=== PATIENT | male | born 1970 | race Caucasian/White ===

== ENCOUNTER 2020-12-07 21:17 | Emergency (ER) | payer OTHER ==
[2020-12-07 21:31] VITALS: PULSE 99; RESP 18; TEMP 97.9
[2020-12-07] MEDS ORDERED: SULFAMETH-TMP DS STARTER PACK 2 TAB BTL PO STA (22:08)
[2020-12-07] MEDS ORDERED: SULFAMETHOX-TMP 800-160MG 1 EACH TAB PO STA (22:08)
[2020-12-07] MEDS ORDERED: FUROSEMIDE 20 MG TAB PO STA (22:09)
--- NOTE | 2020-12-07 22:10 | ED ---
Recheck HPI - General Chief Complaint: Extremity Problem,Nontraumatic Stated Complaint: Extremity Swelling,Rt Leg Time Seen by Provider: 12/07/20 21:34 Source: patient, RN notes reviewed, old records reviewed Mode of arrival: ambulatory Limitations: no limitations - History of Present Illness Initial Comments: This is a 42-year-old male DF for evaluation patient having severe right leg swelling and edema. Patient states he recently had treatment for cellulase in that leg and symptoms of been persistent. Patient was on antibiotics and discharged home in antibiotics over the last 2 days of swelling is increased. Patient is otherwise no chest pain no shortness of breath no fevers MD Complaint: wound re-check -: days(s) Returns Today for: persistent/worsening pain related to initial visit, other (Worsening swelling) Symptoms Since Prior Visit: worsening pain, worsening swelling, worsening redness Context: planned re-check Associated Symptoms: none Treatments Prior to Arrival: Given Antibiotics on - Related Data Previous Rx's Medication Instructions Recorded Sulfamethox-Tmp 800-160Mg [Bactrim 2 tab PO BID #40 tab 12/07/20 DS 800-160 mg] Allergies Allergy/AdvReac Type Severity Reaction Status Date / Time No Known Allergies Allergy Verified 12/07/20 21:29 Review of Systems ROS Statement: Those systems with pertinent positive or pertinent negative responses have been documented in the HPI. ROS Other: All systems not noted in ROS Statement are negative. Past Medical History Past Medical History: Hypertension History of Any Multi-Drug Resistant Organisms: None Reported Additional Past Surgical History / Comment(s): Left elbow surgey Past Psychological History: No Psychological Hx Reported Smoking Status: Former smoker Past Alcohol Use History: Occasional Past Drug Use History: None Reported General Exam - General Exam Comments Initial Comments: Cellulitis of right lower extremity around knee with abscess, cellulitis down to leg Limitations: no limitations General appearance: alert, in no apparent distress Head exam: Present: atraumatic, normocephalic, normal inspection Eye exam: Present: normal appearance, PERRL, EOMI. Absent: scleral icterus, conjunctival injection, periorbital swelling ENT exam: Present: normal exam, mucous membranes moist Neck exam: Present: normal inspection. Absent: tenderness, meningismus, lymphadenopathy Respiratory exam: Present: normal lung sounds bilaterally. Absent: respiratory distress, wheezes, rales, rhonchi, stridor Cardiovascular Exam: Present: regular rate, normal rhythm, normal heart sounds. Absent: systolic murmur, diastolic murmur, rubs, gallop, clicks GI/Abdominal exam: Present: soft, normal bowel sounds. Absent: distended, tenderness, guarding, rebound, rigid Extremities exam: Present: normal inspection, full ROM, normal capillary refill. Absent: tenderness, pedal edema, joint swelling, calf tenderness Back exam: Present: normal inspection Neurological exam: Present: alert, oriented X3, CN II-XII intact Psychiatric exam: Present: normal affect, normal mood Skin exam: Present: warm, dry, intact, normal color. Absent: rash Course Vital Signs 12/07/20 12/07/20 21:27 22:25 Temperature 97.9 F 97.9 F Pulse Rate 99 99 Respiratory 18 18 Rate Blood Pressure 159/96 168/100 O2 Sat by Pulse 96 96 Oximetry - Reevaluation(s) Reevaluation #1: Medical record is reviewed Patient symptoms significantly improved here in the ER Patient informed of results and questions have been answered Procedures - Incision & Drainage Consent Obtained: verbal consent Site: lower extremity Anesthetic Used: lidocaine 1%, with epi I&D Cleaning Method: Chloroprep Sterile Field Used?: Yes Scalpel Used: #11 Needle Aspiration Performed?: No Irrigation Performed?: Yes I&D Drainage Obtained: Pus, Blood Culture Obtained?: No Patient Tolerated Procedure: well Medical Decision Making - Medical Decision Making 50 male DF for evaluation patient does have abscess to right leg. Abscess is resolved here in the ER, patient given antibiotics and can be discharged home Disposition Clinical Impression: Abscess of right leg, Cellulitis of right leg, Leg edema, right Disposition: HOME SELF-CARE Condition: Good Instructions (If sedation given, give patient instructions): Cellulitis (ED), Abscess Incision and Drainage (ED), Abscess (ED) Prescriptions: Sulfamethox-Tmp 800-160Mg [Bactrim DS 800-160 mg] 2 tab PO BID #40 tab Is patient prescribed a controlled substance at d/c from ED?: No Referrals: None,Stated [Primary Care Provider] - 1-2 days
[2020-12-07] MEDS ORDERED: LIDOCAINE 1%-EPI 1:100,000 20 ML VIAL SQ STA (22:16)
[2020-12-07 22:26] VITALS: BP 168/100
== END 2020-12-07 22:26 | disposition home or self-care (01) ==
LOC: EC 21:17
DX: L02.415 Cutaneous abscess of right lower limb (principal); I10 Essential (primary) hypertension; Z87.891 Personal history of nicotine dependence
CPT/HCPCS: 10060; 99283

== ENCOUNTER 2024-02-13 08:39 | Inpatient (IN) | payer OTHER ==
--- NOTE | 2024-02-13 08:58 | ED ---
General Adult HPI - General Chief complaint: Shortness of Breath Stated complaint: Both Leg Swelling Time Seen by Provider: 02/13/24 08:40 Source: patient, RN notes reviewed, old records reviewed Mode of arrival: ambulatory Limitations: no limitations - History of Present Illness Initial comments: This is a 53-year-old male who presents to the emergency department complaining of swollen feet. Patient states been ongoing for 3 to 4 days. Patient states this has happened to him in the past and in the past it was an infection. Patient states he has no redness no fevers but he was getting concerned because his legs are getting more more swollen. Patient states he is a daily drinker but he only drinks beer he states he drinks about 4-5 beers a night. Patient denies any chest pain or palpitations but he does complain of shortness of breath. Patient states he has no history of any heart disease or any breathing problems. Patient denies any fever chills or cough. - Related Data Home Medications Medication Instructions Recorded Confirmed No Known Home Medications 02/13/24 02/13/24 Allergies Allergy/AdvReac Type Severity Reaction Status Date / Time No Known Allergies Allergy Verified 02/13/24 11:53 Review of Systems ROS Statement: Those systems with pertinent positive or pertinent negative responses have been documented in the HPI. ROS Other: All systems not noted in ROS Statement are negative. Past Medical History Past Medical History: Hypertension History of Any Multi-Drug Resistant Organisms: None Reported Additional Past Surgical History / Comment(s): Left elbow surgey Past Psychological History: No Psychological Hx Reported Smoking Status: Former smoker Past Alcohol Use History: Occasional Past Drug Use History: None Reported General Exam - General Exam Comments Initial Comments: GENERAL: Patient is well-developed and well-nourished. Patient is nontoxic and well- hydrated and is in mild distress. ENT: Neck is soft and supple. No significant lymphadenopathy is noted. Oropharynx is clear. Moist mucous membranes. Neck has full range of motion without eliciting any pain. EYES: The sclera were anicteric and conjunctiva were pink and moist. Extraocular movements were intact and pupils were equal round and reactive to light. Eyelids were unremarkable. PULMONARY: Unlabored respirations. Good breath sounds bilaterally. No audible rales rhonchi or wheezing was noted. CARDIOVASCULAR: There is a regular rate and rhythm without any murmurs gallops or rubs. ABDOMEN: Soft and nontender with normal bowel sounds. No palpable organomegaly was noted. There is no palpable pulsatile mass. SKIN: Skin is clear with no lesions or rashes and otherwise unremarkable. NEUROLOGIC: Patient is alert and oriented x3. Cranial nerves II through XII are grossly intact. Motor and sensory are also intact. Normal speech, volume and content. Symmetrical smile. MUSCULOSKELETAL: Normal extremities with adequate strength and full range of motion. 2+ bilaterally LYMPHATICS: No significant lymphadenopathy is noted PSYCHIATRIC: Normal psychiatric evaluation. Limitations: no limitations Course Vital Signs 02/13/24 02/13/24 02/13/24 08:40 08:59 09:49 Temperature 97.3 F L Pulse Rate 107 H 107 H Respiratory 16 18 Rate Blood Pressure 151/109 166/127 156/114 O2 Sat by Pulse 97 98 Oximetry 02/13/24 02/13/24 10:00 11:09 Temperature Pulse Rate 108 H 101 H Respiratory 24 20 Rate Blood Pressure 156/114 140/98 O2 Sat by Pulse 91 L Oximetry Medical Decision Making - Medical Decision Making EKG is interpreted by myself. EKG shows sinus tachycardia at 106 bpm MD interval 259 QRS 95 QT interval 363 QTc is 425. Patient's EKG shows no ST segment elevation or depression. Was pt. sent in by a medical professional or institution (, PA, TAX ACCOUNTING ASSISTANT, urgent care, hospital, or longterm...) When possible be specific @ -No Did you speak to anyone other than the patient for history (EMS, parent, family, police, friend...)? What history was obtained from this source @ -No Did you review nursing and triage notes (agree or disagree)? Why? @ -I reviewed and agree with nursing and triage notes Were old charts reviewed (outside hosp., previous admission, EMS record, old EKG, old radiological studies, urgent care reports/EKG's, longterm records)? Report findings @ -No old charts were reviewed Differential Diagnosis? @ -Congestive heart failure, pulmonary edema, pedal edema, liver failure, cardiomyopathy this is not an all-inclusive list EKG interpreted by me (3pts min.). @ -As above X-rays interpreted by me (1pt min.). @ -Chest x-ray shows a small pleural effusion CT interpreted by me (1pt min.). @ -None done U/S interpreted by me (1pt. min.). @ -None done What testing was considered but not performed or refused? (CT, X-rays, U/S, labs)? Why? @ -None What meds were considered but not given or refused? Why? @ -None Did you discuss the management of the patient with other professionals (professionals i.e. , PA, TAX ACCOUNTING ASSISTANT, lab, RT, psych nurse, renal social worker, machinist apprentice, teacher, uniform patrol police officer, welfare case worker)? Give summary @ -I spoke with [facility] they agreed to admit the patient admit the patient and wrote admitting orders Was smoking cessation discussed for >3mins.? @ -No Was critical care preformed (if so, how long)? @ -No Were there social determinants of health that impacted care today? How? ( Homelessness, low income, unemployed, alcoholism, drug addiction, transportation, low edu. Level, literacy, decrease access to med. care, shelter, rehab)? @ -No Was there de-escalation of care discussed even if they declined (Discuss DNR or withdrawal of care, Hospice)? DNR status @ -No What co-morbidities impacted this encounter? (DM, HTN, Smoking, COPD, CAD, Cancer, CVA, ARF, Chemo, Hep., AIDS, mental health diagnosis, sleep apnea, morbid obesity)? @ -None Was patient admitted / discharged? Hospital course, mention meds given and route, prescriptions, significant lab abnormalities, going to OR and other pertinent info. @ -Patient has significant edema into the legs I gave the patient Lasix while in the emergency department and I did give him 10 hydralazine to bring his blood pressure down as well. Patient had an elevated BNP and when I spoke with [facility] they want the patient admitted and an echo ordered. I wrote admitting orders I did order an echo Undiagnosed new problem with uncertain prognosis? @ -No Drug Therapy requiring intensive monitoring for toxicity (Heparin, Nitro, Insulin, Cardizem)? @ -No Were any procedures done? @ -No Diagnosis/symptom? @ -Pedal edema Acute, or Chronic, or Acute on Chronic? @ -Acute Uncomplicated (without systemic symptoms) or Complicated (systemic symptoms)? @ -Complicated Side effects of treatment? @ -No Exacerbation, Progression, or Severe Exacerbation? @ -No Poses a threat to life or bodily function? How? (Chest pain, USA, IA, pneumonia, PE, COPD, DKA, ARF, appy, cholecystitis, CVA, Diverticulitis, Homicidal, Suicid al, threat to staff... and all critical care pts) @ -No Diagnosis/symptom? @ -Dyspnea Acute, or Chronic, or Acute on Chronic? @ -Acute Uncomplicated (without systemic symptoms) or Complicated (systemic symptoms)? @ -Complicated Side effects of treatment? @ -None Exacerbation, Progression, or Severe Exacerbation] @ -No Poses a threat to life or bodily function? @ -No - Lab Data Result diagrams: 02/13/24 09:14 02/13/24 09:14 Lab Results 02/13/24 02/13/24 02/13/24 Range/Units 09:14 09:14 09:14 WBC 10.8 H (3.8-10.6) k/uL RBC 5.03 (4.30-5.90) m/uL Hgb 14.8 (13.0-17.5) gm/dL Hct 47.2 (39.0-53.0) % MCV 93.8 (80.0-100.0) fL MCH 29.3 (25.0-35.0) pg MCHC 31.3 (31.0-37.0) g/dL RDW 14.1 (11.5-15.5) % Plt Count 315 (150-450) k/uL MPV 9.3 Neutrophils % 62 % Lymphocytes % 27 % Monocytes % 8 % Eosinophils % 2 % Basophils % 0 % Neutrophils # 6.7 (1.3-7.7) k/uL Lymphocytes # 2.9 (1.0-4.8) k/uL Monocytes # 0.8 (0-1.0) k/uL Eosinophils # 0.2 (0-0.7) k/uL Basophils # 0.1 (0-0.2) k/uL PT 12.1 (10.0-12.5) sec INR 1.1 (<1.2) APTT 20.0 L (22.0-30.0) sec Sodium 136 L (137-145) mmol/L Potassium 5.4 H (3.5-5.1) mmol/L Chloride 108 H (98-107) mmol/L Carbon Dioxide 20 L (22-30) mmol/L Anion Gap 8 mmol/L BUN 23 H (9-20) mg/dL Creatinine 1.02 (0.66-1.25) mg/dL Est GFR (CKD-EPI)AfAm >90 (>60 ml/min/1.73 sqM) Est GFR (CKD-EPI)NonAf 85 (>60 ml/min/1.73 sqM) Glucose 103 H (74-99) mg/dL Plasma Lactic Acid Avinash (0.7-2.0) mmol/L Calcium 9.1 (8.4-10.2) mg/dL Magnesium 1.9 (1.6-2.3) mg/dL Total Bilirubin 1.3 (0.2-1.3) mg/dL AST 57 (17-59) U/L ALT 39 (4-49) U/L Alkaline Phosphatase 60 (38-126) U/L Troponin I (0.000-0.034) ng/mL NT-Pro-B Natriuret Pep 7900 pg/mL Total Protein 6.4 (6.3-8.2) g/dL Albumin 3.7 (3.5-5.0) g/dL Serum Alcohol <10 mg/dL 02/13/24 02/13/24 Range/Units 09:14 09:54 WBC (3.8-10.6) k/uL RBC (4.30-5.90) m/uL Hgb (13.0-17.5) gm/dL Hct (39.0-53.0) % MCV (80.0-100.0) fL MCH (25.0-35.0) pg MCHC (31.0-37.0) g/dL RDW (11.5-15.5) % Plt Count (150-450) k/uL MPV Neutrophils % % Lymphocytes % % Monocytes % % Eosinophils % % Basophils % % Neutrophils # (1.3-7.7) k/uL Lymphocytes # (1.0-4.8) k/uL Monocytes # (0-1.0) k/uL Eosinophils # (0-0.7) k/uL Basophils # (0-0.2) k/uL PT (10.0-12.5) sec INR (<1.2) APTT (22.0-30.0) sec Sodium (137-145) mmol/L Potassium (3.5-5.1) mmol/L Chloride (98-107) mmol/L Carbon Dioxide (22-30) mmol/L Anion Gap mmol/L BUN (9-20) mg/dL Creatinine (0.66-1.25) mg/dL Est GFR (CKD-EPI)AfAm (>60 ml/min/1.73 sqM) Est GFR (CKD-EPI)NonAf (>60 ml/min/1.73 sqM) Glucose (74-99) mg/dL Plasma Lactic Acid Avinash 1.2 (0.7-2.0) mmol/L Calcium (8.4-10.2) mg/dL Magnesium (1.6-2.3) mg/dL Total Bilirubin (0.2-1.3) mg/dL AST (17-59) U/L ALT (4-49) U/L Alkaline Phosphatase (38-126) U/L Troponin I 0.025 (0.000-0.034) ng/mL NT-Pro-B Natriuret Pep pg/mL Total Protein (6.3-8.2) g/dL Albumin (3.5-5.0) g/dL Serum Alcohol mg/dL Disposition Clinical Impression: Elevated brain natriuretic peptide (BNP) level, Dyspnea, Pedal edema Disposition: ADMITTED IP TO THIS HOSP Referrals: None,Stated [Primary Care Provider] - 1-2 days Time of Disposition: 12:38
[2024-02-13 09:33] LABS: Basophils # (A) 0.1 k/uL (0-0.2); Basophils % (A) 0 %; Eosinophils # (A) 0.2 k/uL (0-0.7); Eosinophils % (A) 2 %; HCT 47.2 % (39.0-53.0); HGB 14.8 gm/dL (13.0-17.5); Lymphocytes # (A) 2.9 k/uL (1.0-4.8); Lymphocytes % (A) 27 %; MCH 29.3 pg (25.0-35.0); MCHC 31.3 g/dL (31.0-37.0); MCV 93.8 fL (80.0-100.0); Mean Platelet Volume 9.3; Monocytes # (A) 0.8 k/uL (0-1.0); Monocytes % (A) 8 %; Neutrophils # (A) 6.7 k/uL (1.3-7.7); Neutrophils % (A) 62 %; Platelet Count 315 k/uL (150-450); RBC 5.03 m/uL (4.30-5.90); RDW 14.1 % (11.5-15.5); WBC 10.8 k/uL (3.8-10.6)
[2024-02-13 09:43] LABS: INR 1.1 (<1.2); Prothrombin Time 12.1 sec (10.0-12.5)
[2024-02-13] MEDS: hydrALAZINE HCL 20 MG/ML 1 ML VIAL IVP STA (09:50)
[2024-02-13] MEDS: FUROSEMIDE 10 MG/ML 4 ML VIAL IV STA (09:51)
[2024-02-13 10:15] LABS: ALT 39 U/L (4-49); African American GFR (CKD) >90 (>60 ml/min/1.73 sqM); Alcohol <10 mg/dL; Anion Gap 8 mmol/L; Blood Urea Nitrogen 23 mg/dL (9-20); Calcium 9.1 mg/dL (8.4-10.2); Carbon Dioxide 20 mmol/L (22-30); Chloride 108 mmol/L (98-107); Glucose 103 mg/dL (74-99); Non-African American GFR(CKD) 85 (>60 ml/min/1.73 sqM); Sodium 136 mmol/L (137-145); Total Bilirubin 1.3 mg/dL (0.2-1.3)
[2024-02-13 10:22] LABS: NT-Pro-B-Type Natriuretic Pept 7900 pg/mL
[2024-02-13 10:30] LABS: AST 57 U/L (17-59); Albumin 3.7 g/dL (3.5-5.0); Alkaline Phosphatase 60 U/L (38-126); Magnesium 1.9 mg/dL (1.6-2.3); Potassium 5.4 mmol/L (3.5-5.1); Total Protein 6.4 g/dL (6.3-8.2)
--- NOTE | 2024-02-13 10:35 | XR ---
EXAMINATION TYPE: XR chest 2V DATE OF EXAM: 02/13/2024 COMPARISON: None INDICATION: Swelling short of breath TECHNIQUE: Frontal and lateral views of the chest are obtained. FINDINGS: The heart size is normal. The pulmonary vasculature is normal. The lungs are clear. IMPRESSION: 1. No acute pulmonary process.
[2024-02-13] MEDS ORDERED: NITROGLYCERIN SL TABS 0.4 MG TAB SUBLINGUAL PRN (12:38)
[2024-02-13] MEDS: FUROSEMIDE 10 MG/ML 2 ML VIAL IV SCH (15:59)
[2024-02-13] MEDS: HEPARIN SODIUM,PORCINE 5,000 UNIT/ML 1 ML VIAL SQ SCH (15:59)
[2024-02-13] MEDS: NITROGLYCERIN OINT 1 INCH/GM PACKET TOPICAL SCH (17:23)
--- NOTE | 2024-02-13 23:12 | P.HPIM ---
History of Present Illness H&P Date: 02/13/24 Chief Complaint: Bilateral leg swelling Patient is a is a 53-year-old male with a known history of hypertension and prior history of smoking presents to ER with complaints of worsening leg swelling bilaterally for the past 3 to 4 days. Patient states that it happened with him in the past due to infection but denies any redness or fever at this time. Patient does drink on daily basis about 4 to 5 days at night.. Patient does complain of shortness of breath but denies any complaints of chest pain. No nausea vomiting or abdominal pain or diarrhea. No fever no chills. No cough or sputum production. Blood pressure 166/127, pulse 107 respiration 16 and pulse ox 97% on room air. Chest x-ray showed no acute pulmonary process. EKG showed sinus tachycardia with left atrial enlargement. Laboratory showed WBC 10.8 hemoglobin 14.8 and platelets 315 sodium 136 potassium 5.4 chloride 108 bicarb is 20 BUN 23 and creatinine 1.02 and blood sugar 103 troponin x 3 negative magnesium 1.9 proBNP 7900 Serum alcohol level is less than 10. Albumin 3.7. Review of Systems Constitutional: Patient denies any fever or chills . No generalized weakness or weight loss. Abdomen: Patient denied nausea vomiting and diarrhea and abdominal pain. Cardiovascular: Patient denies any chest pain. Patient does complain of short of breath. No palpitations. Worsening leg swelling. Respiratory: patient denied any cough or sputum production. Positive shortness of breath Neurologic: Patient denied any numbness or tingling. no headache. Musculoskeletal: Patient denies any complaints of joint swelling or deformity. Skin: Negative Psychiatric: Negative Endocrine: No heat or cold intolerance. No recent weight gain. Genitourinary: No dysuria or hematuria. All other 14 point ROS negative except the above Past Medical History Past Medical History: Hypertension History of Any Multi-Drug Resistant Organisms: None Reported Additional Past Surgical History / Comment(s): Left elbow surgey Past Psychological History: No Psychological Hx Reported Smoking Status: Former smoker Past Alcohol Use History: Occasional Past Drug Use History: None Reported Medications and Allergies Home Medications Medication Instructions Recorded Confirmed Type No Known Home Medications 02/13/24 02/13/24 History Allergies Allergy/AdvReac Type Severity Reaction Status Date / Time No Known Allergies Allergy Verified 02/13/24 11:53 Physical Exam Vitals: Vital Signs Temp Pulse Resp BP Pulse Ox 02/13/24 12:00 103 H 13 140/98 98 02/13/24 11:09 101 H 20 140/98 91 L 02/13/24 10:00 108 H 24 156/114 02/13/24 09:49 107 H 18 156/114 98 02/13/24 08:59 166/127 02/13/24 08:40 97.3 F L 107 H 16 151/109 97 Intake and Output 02/12/24 02/13/24 02/13/24 22:59 06:59 14:59 Output Total 1999 Balance -1999 Output: Urine 1999 Other: Weight 104.326 kg PHYSICAL EXAMINATION: Patient is lying in the bed comfortably, no acute distress, awake alert and oriented.. HEENT: Normocephalic. Neck is supple. Pupils reactive. Nostrils clear. Oral cavity is moist. Neck reveals no JVD, carotid bruits, or thyromegaly. CHEST EXAMINATION: Trachea is central. Symmetrical expansion. Bibasilar diminished sounds otherwise lung gauthier clear to auscultation and percussion. CARDIAC: Normal S1, S2 with no gallops. No murmurs ABDOMEN: Soft. Bowel sounds normal. No organomegaly. No abdominal bruits. Extremities: Bilateral lower extremity 3+ edema. No clubbing or cyanosis Neurologically awake, alert, oriented x3 with well-coordinated movements. No focal deficits noted Skin: No rash or skin lesions. Psychiatric: Coperative. Nonsuicidal Musculoskeletal: No joint swelling or deformity. Normal range of motion. Results CBC & Chem 7: 02/14/24 03:26 02/14/24 03:26 Labs: Abnormal Lab Results - Last 24 Hours (Table) 02/13/24 02/13/24 02/13/24 Range/Units 09:14 09:14 09:14 WBC 10.8 H (3.8-10.6) k/uL APTT 20.0 L (22.0-30.0) sec Sodium 136 L (137-145) mmol/L Potassium 5.4 H (3.5-5.1) mmol/L Chloride 108 H (98-107) mmol/L Carbon Dioxide 20 L (22-30) mmol/L BUN 23 H (9-20) mg/dL Glucose 103 H (74-99) mg/dL Thrombosis Risk Factor Assmnt - DVT/VTE Prophylaxis DVT/VTE Prophylaxis: Pharmacologic Prophylaxis ordered Assessment and Plan Assessment: Acute CHF. Ejection fraction not known. Uncontrolled hypertension Noncompliant with medications Daily alcohol use Prior history of smoking DVT prophylaxis with heparin subcu Plan: Patient will be continued on telemonitoring. Started on IV Lasix 20 mg every 8 hourly and continue to monitor renal function. 2D echocardiogram was ordered. Cardiology consult. Continue to monitor blood pressure and titrate medications as needed. Follow-up closely. Patient discharged on thiamine and multivitamins. Alcohol abstinence has been counseled. Discussed with the patient and his . Time with Patient: Greater than 30
[2024-02-14] MEDS: ASPIRIN 325 MG TAB PO SCH (07:59)
[2024-02-14 08:49] LABS: Basophils # (A) 0.04 X 10*3/uL (0.00-0.10); Basophils % (A) 0.4 %; Eosinophils # (A) 0.32 X 10*3/uL (0.04-0.35); Eosinophils % (A) 3.3 %; HCT 43.9 % (39.6-50.0); HGB 14.3 g/dL (13.0-17.0); Lymphocytes # (A) 2.33 X 10*3/uL (0.90-5.00); Lymphocytes % (A) 24.3 %; MCH 29.5 pg (27.0-32.0); MCHC 32.6 g/dL (32.0-37.0); MCV 90.7 FL (80.0-97.0); Mean Platelet Volume 11.1 FL (9.5-12.2); Monocytes % (A) 10.4 %; NRBC Per 100 WBC 0 X 10*3/uL (0.00-0.01); Neutrophils # (A) 5.86 X 10*3/uL (1.80-7.70); Neutrophils % (A) 61.3 %; Platelet Count 313 X 10*3/uL (140-440); RBC 4.84 X 10*6/uL (4.40-5.60); WBC 9.58 X 10*3/uL (4.50-10.00)
[2024-02-14 08:59] LABS: BUN/Creat Ratio 15.38 Ratio (12.00-20.00); Calcium 9.1 mg/dL (8.7-10.3); Carbon Dioxide 27.9 mmol/L (21.6-31.8); Chloride 103 mmol/L (96-109); Chol/HDL Ratio 4.12 Ratio; Glucose 103 mg/dL (70-110); LDL Cholesterol,Calculated 83.5 mg/dL (0.0-131.0); Potassium 4.5 mmol/L (3.5-5.5); Sodium 141 mmol/L (135-145); VLDL Calculation 18.74 mg/dL (5.00-40.00)
--- NOTE | 2024-02-14 11:29 | P.CRDCN ---
History of Present Illness History of present illness: HISTORY OF PRESENTING ILLNESS This is a pleasant 53-year-old with past medical history significant for hypertension, medical noncompliance, previous tobacco as well as alcohol use who presents with significant LE edema and shortness of breath. He does not see a metal handler. He previously had been on a number of high blood pressure medications and was seen at [facility]'s clinic however does not follow and has not been taking his medications. He does not check his blood pressure home. He states he has noticed increase in lower extremity edema and some shortness breath and therefore came to the hospital. He denies any actual chest pain or pressure. EKG shows mild sinus tachycardia with nonspecific T-wave inversions. Does not smoke, previously drank however does not drink and does have family history of father and mother having heart disease as well as aortic aneurysm. BNP noted to be elevated, chest x-ray consistent with heart failure. Blood pressures about in the 160s and 170s over 110s. REVIEW OF SYSTEMS At the time of my exam: CONSTITUTIONAL: Denies fever or chills. CARDIOVASCULAR: Denies chest pain, +shortness of breath, +orthopnea, no PND or palpitations. RESPIRATORY: Denies cough. GASTROINTESTINAL: Denies abdominal pain, diarrhea, constipation, nausea or vom iting. MUSCULOSKELETAL: Denies myalgias. NEUROLOGIC: Denies numbness, tingling or weakness. ENDOCRINE: Denies fatigue, weight change, polydipsia or polyurina. GENITOURINARY: Denies burning, hematuria or urgency with micturation. HEMATOLOGIC: Denies history of anemia or bleeding. PHYSICAL EXAMINATION Vital signs reviewed. CONSTITUTIONAL: No apparent distress. HEENT: Head is normocephalic. Pupils are equal, round. Sclerae anicteric. Mucous membranes of the mouth are moist. No JVD. No carotid bruit. CHEST EXAMINATION: Lungs are clear to auscultation. No chest wall tenderness is noted on palpation or with deep breathing. HEART EXAMINATION: Regular rate and rhythm. S1, S2 heard. No murmurs, gallops or rub. ABDOMEN: Soft, nontender. Positive bowel sounds. EXTREMITIES: 2+ peripheral pulses, 2+ lower extremity edema and no calf tenderness. NEUROLOGIC EXAMINATION: Patient is awake, alert and oriented x3. ASSESSMENT Acute on chronic presumed diastolic heart failure Hypertension noncompliant with medications Medical noncompliance Previous tobacco abuse Previous alcohol use Family history of CAD Family history of aneurysm PLAN Blood pressure is uncontrolled. We will start carvedilol as well as lisinopril and monitor response. Symptoms all consistent with heart failure and continue with diuretics. Check 2-D echo. Low-salt diet and monitor ins and outs. Monitor creatinine closely. Further recommendations to follow. Past Medical History Past Medical History: Hypertension History of Any Multi-Drug Resistant Organisms: None Reported Additional Past Surgical History / Comment(s): Left elbow surgey Past Anesthesia/Blood Transfusion Reactions: No Reported Reaction Past Psychological History: No Psychological Hx Reported Smoking Status: Former smoker Past Alcohol Use History: Occasional Past Drug Use History: None Reported Medications and Allergies Home Medications Medication Instructions Recorded Confirmed Type No Known Home Medications 02/13/24 02/13/24 History Allergies Allergy/AdvReac Type Severity Reaction Status Date / Time No Known Allergies Allergy Verified 02/13/24 11:53 Physical Exam Vitals: Vital Signs Temp Pulse Pulse Resp BP BP Pulse Ox 02/14/24 09:21 162/107 02/14/24 07:00 97.8 F 107 H 15 171/111 95 02/14/24 04:21 154/97 02/14/24 02:00 108 H 17 164/118 95 02/13/24 22:40 97.5 F L 105 H 17 151/108 96 02/13/24 21:22 109 H 18 157/111 94 L 02/13/24 18:45 97.6 F 104 H 18 156/98 97 02/13/24 17:20 102 H 18 167/122 96 02/13/24 16:06 106 H 18 167/122 96 02/13/24 12:00 103 H 13 140/98 98 Intake and Output 02/13/24 02/14/24 02/14/24 22:59 06:59 14:59 Output Total 1500 800 Balance -1500 -800 Output: Urine 1500 800 Other: Voiding Method Urinal Urinal Weight 104.326 kg 105.1 kg Results 02/14/24 03:26 02/14/24 03:26 Cardiac Enzymes 02/13/24 02/13/24 Range/Units 13:02 16:17 Troponin I 0.018 0.018 (0.000-0.034) ng/mL Lipids 02/14/24 Range/Units 03:26 Triglycerides 93.70 (0.00-149.00) mg/dL Cholesterol 135.00 (0.00-200.00) mg/dL HDL Cholesterol 32.80 L (40.00-60.00) mg/dL Cholesterol/HDL Ratio 4.12 Ratio CBC 02/14/24 Range/Units 03:26 WBC 9.58 (4.50-10.00) X 10*3/uL RBC 4.84 (4.40-5.60) X 10*6/uL Hgb 14.3 (13.0-17.0) g/dL Hct 43.9 (39.6-50.0) % Plt Count 313 (140-440) X 10*3/uL Comprehensive Metabolic Panel 02/14/24 Range/Units 03:26 Sodium 141 (135-145) mmol/L Potassium 4.5 (3.5-5.5) mmol/L Chloride 103 (96-109) mmol/L Carbon Dioxide 27.9 (21.6-31.8) mmol/L BUN 20.0 (9.0-27.0) mg/dL Creatinine 1.3 (0.6-1.5) mg/dL Glucose 103 (70-110) mg/dL Calcium 9.1 (8.7-10.3) mg/dL Current Medications Generic Name Dose Route Start Last Admin Trade Name Freq PRN Reason Stop Dose Admin Aspirin 325 mg 02/14/24 09:00 02/14/24 07:59 Aspirin 325 Mg Tab PO 325 mg DAILY AMBER Administration Furosemide 20 mg 02/13/24 16:00 02/14/24 07:59 Furosemide 10 Mg/Ml 2 Ml Vial IV 20 mg Q8HR AMBER Administration Heparin Sodium (Porcine) 5,000 unit 02/13/24 16:00 02/14/24 07:59 Heparin Sodium,Porcine 5,000 Unit/Ml 1 Ml Vial SQ 5,000 unit Q8HR AMBER Administration Lisinopril 10 mg 02/14/24 11:30 Lisinopril 10 Mg Tab PO DAILY AMBER Nitroglycerin 0.4 mg 02/13/24 12:38 Nitroglycerin Sl Tabs 0.4 Mg Tab SUBLINGUAL Q5M PRN Chest Pain Nitroglycerin 1 inch 02/13/24 18:00 02/14/24 05:43 Nitroglycerin Oint 1 Inch/Gm Packet TOPICAL Not Given Q6HR AMBER Intake and Output 02/13/24 02/14/24 02/14/24 22:59 06:59 14:59 Output Total 1500 800 Balance -1500 -800 Output: Urine 1500 800 Other: Voiding Method Urinal Urinal Weight 104.326 kg 105.1 kg 02/14/24 03:26 02/14/24 03:26
[2024-02-14] MEDS: carvediloL 6.25 MG TAB PO SCH (12:58)
[2024-02-14] MEDS: lisinopriL 10 MG TAB PO SCH (12:58)
--- NOTE | 2024-02-14 13:02 | CA ---
Transthoracic Echo Report Name: Gerardo Sepulveda Age: 53 Gender: M : 1970 Exam Date: 02/13/2024 14:48 Exam Location: [facility] Ht (in): 71 Wt (lb): 230 Ordering Physician: Lukasz Hess MD Attending/Referring Phys: Laborer [employer] Jojo Lujan RDCS Procedure CPT: Indications: dyspnea, elevated BNP Cardiac Hx: Technical Quality: Fair Contrast 1: Definity Total Dose (mL): 2 Contrast 2: Total Dose (mL): MEASUREMENTS (Male / Female) Normal Values 2D ECHO LV Diastolic Diameter PLAX 5.3 cm 4.2 - 5.9 / 3.9 - 5.3 cm LV Systolic Diameter PLAX 4.4 cm IVS Diastolic Thickness 1.5 cm 0.6 - 1.0 / 0.6 - 0.9 cm LVPW Diastolic Thickness 1.7 cm 0.6 - 1.0 / 0.6 - 0.9 cm LV Relative Wall Thickness 0.6 RV Internal Dim ED PLAX 3.7 cm LA Volume 93.1 cm??? 18 - 58 / 22 - 52 cm??? LA Volume Index 40.2 cm???/m??? 16 - 28 cm???/m??? M-MODE Aortic Root Diameter MM 3.7 cm LA Systolic Diameter MM 4.3 cm LA Ao Ratio MM 1.1 AV Cusp Separation MM 1.7 cm DOPPLER AV Peak Velocity 116.5 cm/s AV Peak Gradient 5.4 mmHg AV Mean Velocity 86.2 cm/s AV Mean Gradient 3.2 mmHg AV Velocity Time Integral 20.3 cm LVOT Peak Velocity 93.4 cm/s LVOT Peak Gradient 3.5 mmHg LVOT Velocity Time Integral 14.2 cm MV Area PHT 3.4 cm??? Mitral E Point Velocity 146.2 cm/s Mitral A Point Velocity 1.1 cm/s Mitral E to A Ratio 134.9 MV Deceleration Time 226.2 ms TR Peak Velocity 326.3 cm/s TR Peak Gradient 42.6 mmHg Right Ventricular Systolic Press 46.2 mmHg FINDINGS Left Ventricle Moderately increased left ventricular wall thickness. Left ventricular cavity size normal. Severely reduced global left ventricular systolic function. Left ventricular ejection fraction is estimated at 20-25 %. Right Ventricle Mild right ventricular dilatation. Mildly decreased RV systolic function. Mild pulmonary hypertension. Right Atrium Mild right atrial dilatation. Left Atrium Severely increased left atrial volume. Mildly increased left atrial area. Mitral Valve Structurally normal mitral valve. No mitral stenosis. Mild mitral annular calcification. Moderate mitral regurgitation. Aortic Valve Trileaflet aortic valve. No aortic valve stenosis or regurgitation. Tricuspid Valve Structurally normal tricuspid valve. [id number] tricuspid regurgitation. Pulmonic Valve Structurally normal pulmonic valve. Trace pulmonic regurgitation. Pericardium No pericardial effusion. Aorta Normal size aortic root and proximal ascending aorta. CONCLUSIONS Left ventricular ejection fraction 20-25% Moderately increased left ventricular wall thickness Moderately dilated left atrium Moderate mitral regurgitation Mild to moderate tricuspid regurgitation No pericardial effusion Previewed by: Dr. Colin Santos DO (Electronically Signed) Final Date: 14 February 2024 13:01
[2024-02-15 09:24] LABS: Basophils # (A) 0.04 X 10*3/uL (0.00-0.10); Basophils % (A) 0.5 %; Eosinophils # (A) 0.28 X 10*3/uL (0.04-0.35); Eosinophils % (A) 3.6 %; HCT 44.1 % (39.6-50.0); Lymphocytes # (A) 2.84 X 10*3/uL (0.90-5.00); Lymphocytes % (A) 36.6 %; MCHC 31.7 g/dL (32.0-37.0); MCV 91.5 FL (80.0-97.0); Monocytes # (A) 0.73 X 10*3/uL (0.20-1.00); Monocytes % (A) 9.4 %; NRBC Per 100 WBC 0 X 10*3/uL (0.00-0.01); Neutrophils # (A) 3.86 X 10*3/uL (1.80-7.70); Neutrophils % (A) 49.6 %; Platelet Count 320 X 10*3/uL (140-440); RBC 4.82 X 10*6/uL (4.40-5.60); RDW 13.9 % (11.5-14.5); WBC 7.77 X 10*3/uL (4.50-10.00)
--- NOTE | 2024-02-15 09:32 | P.PN ---
Subjective Progress Note Date: 02/15/24 HISTORY OF PRESENTING ILLNESS This is a pleasant 53-year-old with past medical history significant for hyp ertension, medical noncompliance, previous tobacco as well as alcohol use who presents with significant LE edema and shortness of breath. 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 He previously had been on a number of high blood pressure medications and was seen at [facility]'s clinic however does not follow and has not been taking his medications. He does not check his blood pressure home. He states he has noticed increase in lower extremity edema and some shortness breath and therefore came to the hospital. He denies any actual chest pain or pressure. EKG shows mild sinus tachycardia with nonspecific T-wave inversions. Does not smoke, previously drank however does not drink and does have family h istory of father and mother having heart disease as well as aortic aneurysm. BNP noted to be elevated, chest x-ray consistent with heart failure. Blood pressures about in the 160s and 170s over 110s. 02/14 Patient is seen and examined. Patient has been maintained on Coreg 6.25 mg twice daily, lisinopril 10 mg daily. Blood pressure is 140/92, heart rate 92, pulse ox 94% on room air. WBC 9.5, hemoglobin 14.3. Electrolytes and renal function are normal with a creatinine of 1.3. Triglycerides 93, cholesterol 135, LDL 83. Echocardiogram reveals EF of 20 to 25%, moderately increased left ventricular wall thickness, moderately dilated left atrium. Moderate MR, mild to moderate TR. No pericardial effusion. Patient has been maintained on IV Lasix 20 mg every 8 hours. He has a negative fluid balance and weight loss of almost 4 kg. Discussed results of the echocardiogram with the patient and the need to move forward with cardiac catheterization which he is in agreement to do. Will plan to make patient n.p.o. tonight for possible heart catheterization tomorrow. PHYSICAL EXAMINATION Vital signs reviewed. CONSTITUTIONAL: No apparent distress. HEENT: Head is normocephalic. Pupils are equal, round. Sclerae anicteric. Mucous membranes of the mouth are moist. No JVD. No carotid bruit. CHEST EXAMINATION: Lungs are clear to auscultation. No chest wall tenderness is noted on palpation or with deep breathing. HEART EXAMINATION: Regular rate and rhythm. S1, S2 heard. No murmurs, gallops or rub. ABDOMEN: Soft, nontender. Positive bowel sounds. EXTREMITIES: 2+ peripheral pulses, 2+ lower extremity edema and no calf tenderness. NEUROLOGIC EXAMINATION: Patient is awake, alert and oriented x3. 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 tonight for possible cardiac catheterization tomorrow with Dr. Santos. Further recommendations to follow. Nurse practitioner note has been reviewed, I agree with documented findings and plan of care. Patient was seen and examined. Objective - Vital Signs Vital signs: Vital Signs Temp 97.9 F 02/15/24 07:00 Pulse 92 02/15/24 07:00 Resp 18 02/15/24 07:00 BP 140/92 02/15/24 07:00 Pulse Ox 94 L 02/15/24 07:00 FiO2 Intake & Output 02/14/24 02/15/24 02/15/24 18:59 06:59 18:59 Intake Total 236 180 Output Total 2775 1775 Balance -6121 -7164 180 Weight 101.2 kg Intake: Oral 236 180 Output: Urine 2779 1775 Other: Voiding Method Urinal Urinal - Labs CBC & Chem 7: 02/15/24 03:54 02/14/24 03:26
[2024-02-15] MEDS: THIAMINE 100 MG TAB PO SCH (10:11)
[2024-02-15] MEDS: MULTIVITAMINS, THERA 1 EACH TAB PO SCH (10:11)
[2024-02-15 12:39] LABS: BUN/Creat Ratio 18.27 Ratio (12.00-20.00); Blood Urea Nitrogen 20.1 mg/dL (9.0-27.0); Carbon Dioxide 29.1 mmol/L (21.6-31.8); Chloride 99 mmol/L (96-109); Glucose 115 mg/dL (70-110); Potassium 4.5 mmol/L (3.5-5.5); Sodium 138 mmol/L (135-145)
[2024-02-16] MEDS: carvediloL 6.25 MG TAB PO STA (08:54)
[2024-02-16] MEDS ORDERED: NITROGLYCERIN SL TABS 0.4 MG TAB SUBLINGUAL PRN (09:29)
[2024-02-16] MEDS ORDERED: ALPRAZolam 0.5 MG TAB PO PRN (09:29)
[2024-02-16] MEDS ORDERED: ALPRAZolam 0.25 MG TAB PO PRN (09:29)
--- NOTE | 2024-02-16 09:33 | P.PN ---
Subjective Progress Note Date: 02/16/24 HISTORY OF PRESENTING ILLNESS This is a pleasant 53-year-old with past medical history significant for hyp ertension, medical noncompliance, previous tobacco as well as alcohol use who presents with significant LE edema and shortness of breath. 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 He previously had been on a number of high blood pressure medications and was seen at [facility]'s clinic however does not follow and has not been taking his medications. He does not check his blood pressure home. He states he has noticed increase in lower extremity edema and some shortness breath and therefore came to the hospital. He denies any actual chest pain or pressure. EKG shows mild sinus tachycardia with nonspecific T-wave inversions. Does not smoke, previously drank however does not drink and does have family h istory of father and mother having heart disease as well as aortic aneurysm. BNP noted to be elevated, chest x-ray consistent with heart failure. Blood pressures about in the 160s and 170s over 110s. 02/14 Patient is seen and examined. Patient has been maintained on Coreg 6.25 mg twice daily, lisinopril 10 mg daily. Blood pressure is 140/92, heart rate 92, pulse ox 94% on room air. WBC 9.5, hemoglobin 14.3. Electrolytes and renal function are normal with a creatinine of 1.3. Triglycerides 93, cholesterol 135, LDL 83. Echocardiogram reveals EF of 20 to 25%, moderately increased left ventricular wall thickness, moderately dilated left atrium. Moderate MR, mild to moderate TR. No pericardial effusion. Patient has been maintained on IV Lasix 20 mg every 8 hours. He has a negative fluid balance and weight loss of almost 4 kg. Discussed results of the echocardiogram with the patient and the need to move forward with cardiac catheterization which he is in agreement to do. Will plan to make patient n.p.o. tonight for possible heart catheterization tomorrow. 02/15 Patient's blood pressure 145/107, heart rate 100, pulse ox 95% on room air. He is maintained on IV Lasix 40 mg every 8 hours. Patient is agreeable to move forward with left heart catheterization today with Dr. Santos. PHYSICAL EXAMINATION Vital signs reviewed. CONSTITUTIONAL: No apparent distress. HEENT: Head is normocephalic. Pupils are equal, round. Sclerae anicteric. Mucous membranes of the mouth are moist. No JVD. No carotid bruit. CHEST EXAMINATION: Lungs are clear to auscultation. No chest wall tenderness is noted on palpation or with deep breathing. HEART EXAMINATION: Regular rate and rhythm. S1, S2 heard. No murmurs, gallops or rub. ABDOMEN: Soft, nontender. Positive bowel sounds. EXTREMITIES: 2+ peripheral pulses, 2+ lower extremity edema and no calf tenderness. NEUROLOGIC EXAMINATION: Patient is awake, alert and oriented x3. 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 Patient is scheduled for cardiac catheterization today with Dr. Santos. Further recommendations to follow. Nurse practitioner note has been reviewed, I agree with documented findings and plan of care. Patient was seen and examined. Objective - Vital Signs Vital signs: Vital Signs Temp 98.1 F 02/16/24 07:00 Pulse 100 02/16/24 07:00 Resp 17 02/16/24 07:00 BP 145/107 02/16/24 07:00 Pulse Ox 95 02/16/24 07:00 FiO2 Intake & Output 02/15/24 02/16/24 02/16/24 18:59 06:59 18:59 Intake Total 540 Output Total 300 2450 Balance 240 -2450 Weight 98.8 kg Intake: Oral 540 Output: Urine 300 2450 Other: Voiding Method Urinal Urinal - Labs CBC & Chem 7: 02/15/24 03:54 02/15/24 03:54 Labs: Abnormal Lab Results - Last 24 Hours (Table) 02/15/24 02/15/24 Range/Units 03:54 03:54 MCHC 31.7 L (32.0-37.0) g/dL Glucose 115 H (70-110) mg/dL
[2024-02-16] MEDS: ASPIRIN 325 MG TAB PO STA (09:42)
[2024-02-16] MEDS: ATORVASTATIN 80 MG TAB PO STA (09:43)
[2024-02-16 09:47] LABS: BUN/Creat Ratio 21.83 Ratio (12.00-20.00); Blood Urea Nitrogen 26.2 mg/dL (9.0-27.0); Calcium 9.1 mg/dL (8.7-10.3); Carbon Dioxide 27.8 mmol/L (21.6-31.8); Chloride 101 mmol/L (96-109); Glucose 117 mg/dL (70-110); Potassium 4.4 mmol/L (3.5-5.5); Sodium 139 mmol/L (135-145)
[2024-02-16 09:55] LABS: Glucose,Whole Blood 100 mg/dL (70-110)
[2024-02-16] MEDS ORDERED: VERAPAMIL 2.5 MG/ML 2 ML AMP ONE (12:56)
[2024-02-16] MEDS ORDERED: LIDOCAINE 1% INJ 10MG/ML (20 ML MDV) ONE (12:56)
[2024-02-16] MEDS ORDERED: fentaNYL (PF) 50 MCG/ML 2 ML AMP ONE (12:59)
[2024-02-16] MEDS ORDERED: HEPARIN SODIUM 1,000 UN/ML (10ML VL) ONE (12:59)
[2024-02-16] MEDS: SODIUM CHLORIDE 0.9% 1,000 ML IV ONE (13:05)
[2024-02-16] MEDS: fentaNYL (PF) 50 MCG/ML 2 ML AMP IVP ONE (13:11)
[2024-02-16] MEDS: MIDAZOLAM 2 MG/2 ML VIAL IVP ONE (13:11)
[2024-02-16] MEDS: LIDOCAINE 1% INJ 10MG/ML (20 ML MDV) SQ ONE (13:18)
[2024-02-16] MEDS: VERAPAMIL SYRINGE (5 MG/10 ML) INTRAARTER ONE (13:19)
[2024-02-16] MEDS: HEPARIN SODIUM 1,000 UN/ML (10ML VL) IVP ONE (13:22)
[2024-02-16] MEDS: IOPAMIDOL-370 100ML BTL INJ ONE (13:26)
--- NOTE | 2024-02-16 13:38 | P.CARDCATH ---
Description of Procedure: PROCEDURES PERFORMED: Left heart catheterization, bilateral coronary angiography, ultrasound guided arterial access INDICATION: CMP CONSENT:I have discussed the risks, benefits and alternative therapies for the above-mentioned procedure and for both sedation/analgesia as well as necessary blood product administration, if indicated, as they pertain to this patient. The patient has indicated understanding and acceptance of the risks and procedures discussed. PROCEDURE: After the risks, benefits and alternatives of the above mentioned procedure explained in detail with the patient, informed consent was obtained. Patient was taken to the catheterization lab and prepped and draped in usual fashion. Ultrasound guidance was used to assess for arterial access. 1% lidocaine was used to anesthetize the right radial artery. A 6-Barbadian sheath was placed in the right radial artery using modified Seldinger technique and ultrasound guidance. Left coronary angiography was performed with a 5-Barbadian JL 3.5 catheter and right coronary angiography was performed with a 5-Barbadian FR5 catheter in various views. A 5-Barbadian FR5 catheter was inserted into the left ventricle and pressure measurements were obtained. The right radial sheath was removed and a TR band was placed with hemostasis achieved. The patient tolerated the procedure well. Patient was transported back to the post catheterization holding area in stable condition. Conscious Sedation: Patient was monitored under the direct supervision of myself for conscious sedation using Versed and fentanyl for a total duration of 8 minutes HEMODYNAMICS: 141/95 LV: 193/14, LVEDP 29 SELECTIVE CORONARY ARTERIOGRAPHY: LEFT MAIN: The left main is a large caliber vessel which bifurcates into the LAD and circumflex. There is no significant stenosis. LEFT ANTERIOR DESCENDING CORONARY ARTERY: LAD is a large caliber vessel which wraps around to the apex. There is mild 20% mid LAD stenosis and otherwise mild luminal irregularities LEFT CIRCUMFLEX CORONARY ARTERY: Left circumflex is a moderate caliber vessel with mild luminal irregularities. RIGHT CORONARY ARTERY: The right coronary artery is a large caliber vessel which gives off a PDA and PLV branch and is the dominant vessel. There is a mid RCA 20% stenosis and otherwise mild luminal irregularities FINAL IMPRESSION: 1. Mild CAD as described above including 20% mid LAD in 20% mid RCA stenosis. 2. Elevated left sided filling pressures PLAN: 1. Aggressive risk factor modification per most recent ACC/AHA guidelines. 2. Follow-up in the office in 1-2 weeks.
[2024-02-16] MEDS: DAPAGLIFLOZIN PROPANEDIOL 10 MG TABLET PO SCH (15:12)
[2024-02-16] MEDS: SPIRONOLACTONE 25 MG TAB PO SCH (15:12)
[2024-02-16] MEDS: carvediloL 6.25 MG TAB PO SCH (17:21)
--- NOTE | 2024-02-17 00:01 | P.PN ---
Subjective Progress Note Date: 02/14/24 Patient is a is a 53-year-old male with a known history of hypertension and prior history of smoking presents to ER with complaints of worsening leg swelling bilaterally for the past 3 to 4 days. Patient states that it happened with him in the past due to infection but denies any redness or fever at this time. Patient does drink on daily basis about 4 to 5 days at night.. Patient does complain of shortness of breath but denies any complaints of chest pain. No nausea vomiting or abdominal pain or diarrhea. No fever no chills. No cough or sputum production. Blood pressure 166/127, pulse 107 respiration 16 and pulse ox 97% on room air. Chest x-ray showed no acute pulmonary process. EKG showed sinus tachycardia with left atrial enlargement. Laboratory showed WBC 10.8 hemoglobin 14.8 and platelets 315 sodium 136 potassium 5.4 chloride 108 bicarb is 20 BUN 23 and creatinine 1.02 and blood sug ar 103 troponin x 3 negative magnesium 1.9 proBNP 7900 Serum alcohol level is less than 10. Albumin 3.7. 02/14/2024 Patient is currently lying in the bed. Awake alert and oriented. Still having leg swelling and is being continued on Lasix 20 mg IV every 8. Otherwise patient blood pressure is also elevated. Added lisinopril and Coreg. No complaints of dizziness or lightheadedness. No fever no chills. No cough or sputum production. Lab data showed WBC 9.4 hemoglobin 14.3 and platelets 313 BUN 20 and creatinine 1.3 and LDL 83.5. Cardiology is on board. Current medications reviewed. Objective - Vital Signs Vital signs: Vital Signs Temp 98.2 F 02/14/24 19:11 Pulse 103 H 02/14/24 19:11 Resp 20 02/14/24 19:11 BP 151/97 02/14/24 19:11 Pulse Ox 97 02/14/24 19:11 FiO2 Intake & Output 02/14/24 02/14/24 02/15/24 06:59 18:59 06:59 Intake Total 236 Output Total 3339 8627 187 Balance -4047 -0180 -508 Weight 105.1 kg Intake: Oral 236 Output: Urine 1500 4565 477 Other: Voiding Method Urinal Urinal - Exam PHYSICAL EXAMINATION: Patient is lying in the bed comfortably, no acute distress, awake alert and oriented.. HEENT: Normocephalic. Neck is supple. Pupils reactive. Nostrils clear. Oral cavity is moist. Neck reveals no JVD, carotid bruits, or thyromegaly. CHEST EXAMINATION: Trachea is central. Symmetrical expansion. Bibasilar diminished sounds otherwise lung gauthier clear to auscultation and percussion. CARDIAC: Normal S1, S2 with no gallops. No murmurs ABDOMEN: Soft. Bowel sounds normal. No organomegaly. No abdominal bruits. Extremities: Bilateral lower extremity 3+ edema. No clubbing or cyanosis Neurologically awake, alert, oriented x3 with well-coordinated movements. No focal deficits noted Skin: No rash or skin lesions. Psychiatric: Coperative. Nonsuicidal Musculoskeletal: No joint swelling or deformity. Normal range of motion. - Labs CBC & Chem 7: 02/15/24 03:54 02/16/24 04:49 Labs: Abnormal Lab Results - Last 24 Hours (Table) 02/14/24 Range/Units 03:26 HDL Cholesterol 32.80 L (40.00-60.00) mg/dL Assessment and Plan Assessment: Acute CHF. Ejection fraction not known. Uncontrolled hypertension Noncompliant with medications Daily alcohol use Prior history of smoking DVT prophylaxis with heparin subcu Plan: Patient will be continued on telemonitoring. Started on IV Lasix 20 mg every 8 hourly and continue to monitor renal function. Added Coreg and lisinopril for better blood sugar control. 2D echocardiogram showed reduced ejection fraction. Cardiology is on board and is planning for cardiac catheterization tomorrow.. Continue to monitor blood pressure and titrate medications as needed. Follow-up closely. Patient discharged on thiamine and multivitamins. Alcohol abstinence has been counseled. Discussed with the patient and his brother bedside. Time with Patient: Greater than 30
--- NOTE | 2024-02-17 00:03 | P.PN ---
Subjective Progress Note Date: 02/15/24 Patient is a is a 53-year-old male with a known history of hypertension and prior history of smoking presents to ER with complaints of worsening leg swelling bilaterally for the past 3 to 4 days. Patient states that it happened with him in the past due to infection but denies any redness or fever at this time. Patient does drink on daily basis about 4 to 5 days at night.. Patient does complain of shortness of breath but denies any complaints of chest pain. No nausea vomiting or abdominal pain or diarrhea. No fever no chills. No cough or sputum production. Blood pressure 166/127, pulse 107 respiration 16 and pulse ox 97% on room air. Chest x-ray showed no acute pulmonary process. EKG showed sinus tachycardia with left atrial enlargement. Laboratory showed WBC 10.8 hemoglobin 14.8 and platelets 315 sodium 136 potassium 5.4 chloride 108 bicarb is 20 BUN 23 and creatinine 1.02 and blood sug ar 103 troponin x 3 negative magnesium 1.9 proBNP 7900 Serum alcohol level is less than 10. Albumin 3.7. 02/14/2024 Patient is currently lying in the bed. Awake alert and oriented. Still having leg swelling and is being continued on Lasix 20 mg IV every 8. Otherwise patient blood pressure is also elevated. Added lisinopril and Coreg. No complaints of dizziness or lightheadedness. No fever no chills. No cough or sputum production. Lab data showed WBC 9.4 hemoglobin 14.3 and platelets 313 BUN 20 and creatinine 1.3 and LDL 83.5. Cardiology is on board. 02/15/2024 Patient is resting in the bed. Awake alert and oriented x 3. Patient's family is at bedside. Still having leg swelling but much improved. Continued on IV Lasix 20 mg every 8 hourly. Patient has been afebrile. No cough or sputum production. Cardiology is planning for cardiac catheterization tomorrow. Laboratory data reviewed. Blood pressure is better controlled. 2D echocardiogram showed ejection fraction 20 to 25%. Moderately increased left ventricular wall thickness and moderately dilated left atrium. Moderate MR and mild to moderate tricuspid regurgitation. No pericardial effusion. Current medications reviewed. Objective - Vital Signs Vital signs: Vital Signs Temp 97.5 F L 02/15/24 19:20 Pulse 95 02/15/24 21:39 Resp 18 02/15/24 21:39 BP 136/87 02/15/24 19:20 Pulse Ox 94 L 02/15/24 19:20 FiO2 Intake & Output 02/15/24 02/15/24 02/16/24 06:59 18:59 06:59 Intake Total 540 Output Total 1775 300 800 Balance -1775 240 -800 Weight 101.2 kg Intake: Oral 540 Output: Urine 1775 300 800 Other: Voiding Method Urinal Urinal Urinal - Exam PHYSICAL EXAMINATION: Patient is lying in the bed comfortably, no acute distress, awake alert and oriented.. HEENT: Normocephalic. Neck is supple. Pupils reactive. Nostrils clear. Oral cavity is moist. Neck reveals no JVD, carotid bruits, or thyromegaly. CHEST EXAMINATION: Trachea is central. Symmetrical expansion. Bibasilar diminished sounds otherwise lung gauthier clear to auscultation and percussion. CARDIAC: Normal S1, S2 with no gallops. No murmurs ABDOMEN: Soft. Bowel sounds normal. No organomegaly. No abdominal bruits. Extremities: Bilateral lower extremity 3+ edema. No clubbing or cyanosis Neurologically awake, alert, oriented x3 with well-coordinated movements. No focal deficits noted Skin: No rash or skin lesions. Psychiatric: Coperative. Nonsuicidal Musculoskeletal: No joint swelling or deformity. Normal range of motion. - Labs CBC & Chem 7: 02/15/24 03:54 02/16/24 04:49 Labs: Abnormal Lab Results - Last 24 Hours (Table) 02/15/24 02/15/24 Range/Units 03:54 03:54 MCHC 31.7 L (32.0-37.0) g/dL Glucose 115 H (70-110) mg/dL Assessment and Plan Assessment: Acute CHF with reduced ejection fraction at 20 to 25%.. Cardiomyopathy Uncontrolled hypertension Noncompliant with medications Daily alcohol use Prior history of smoking DVT prophylaxis with heparin subcu Plan: Patient will be continued on telemonitoring. Started on IV Lasix 20 mg every 8 hourly and continue to monitor renal function. Added Coreg and lisinopril for better blood sugar control. 2D echocardiogram showed reduced ejection fraction. Cardiology is on board and is planning for cardiac catheterization tomorrow.. Continue to monitor blood pressure and titrate medications as needed. Follow-up closely. Patient discharged on thiamine and multivitamins. Alcohol abstinence has been counseled. Discussed with the patient and his brother bedside. Time with Patient: Greater than 30
--- NOTE | 2024-02-17 00:04 | P.PN ---
Subjective Progress Note Date: 02/16/24 Patient is a is a 53-year-old male with a known history of hypertension and prior history of smoking presents to ER with complaints of worsening leg swelling bilaterally for the past 3 to 4 days. Patient states that it happened with him in the past due to infection but denies any redness or fever at this time. Patient does drink on daily basis about 4 to 5 days at night.. Patient does complain of shortness of breath but denies any complaints of chest pain. No nausea vomiting or abdominal pain or diarrhea. No fever no chills. No cough or sputum production. Blood pressure 166/127, pulse 107 respiration 16 and pulse ox 97% on room air. Chest x-ray showed no acute pulmonary process. EKG showed sinus tachycardia with left atrial enlargement. Laboratory showed WBC 10.8 hemoglobin 14.8 and platelets 315 sodium 136 potassium 5.4 chloride 108 bicarb is 20 BUN 23 and creatinine 1.02 and blood sug ar 103 troponin x 3 negative magnesium 1.9 proBNP 7900 Serum alcohol level is less than 10. Albumin 3.7. 02/14/2024 Patient is currently lying in the bed. Awake alert and oriented. Still having leg swelling and is being continued on Lasix 20 mg IV every 8. Otherwise patient blood pressure is also elevated. Added lisinopril and Coreg. No complaints of dizziness or lightheadedness. No fever no chills. No cough or sputum production. Lab data showed WBC 9.4 hemoglobin 14.3 and platelets 313 BUN 20 and creatinine 1.3 and LDL 83.5. Cardiology is on board. 02/15/2024 Patient is resting in the bed. Awake alert and oriented x 3. Patient's family is at bedside. Still having leg swelling but much improved. Continued on IV Lasix 20 mg every 8 hourly. Patient has been afebrile. No cough or sputum production. Cardiology is planning for cardiac catheterization tomorrow. Laboratory data reviewed. Blood pressure is better controlled. 2D echocardiogram showed ejection fraction 20 to 25%. Moderately increased left ventricular wall thickness and moderately dilated left atrium. Moderate MR and mild to moderate tricuspid regurgitation. No pericardial effusion. 02/16/2024 Patient is s/p cardiac catheterization today. Showed mild CAD and elevated left sided filling pressures. Aggressive risk factor modification was recommended by cardiology. Denies any complaints of chest pain or shortness of breath. Denies any worsening leg swelling. Leg swelling is actually improving. Continued on IV Lasix. No fever no chills. No cough or sputum production. No headache or di zziness or lightheadedness. Laboratory data showed BUN 26.2 and creatinine 1.2 and blood sugar 117. Current medications reviewed. Objective - Vital Signs Vital signs: Vital Signs Temp 98.0 F 02/16/24 18:41 Pulse 74 02/16/24 18:41 Resp 17 02/16/24 18:41 BP 100/68 02/16/24 18:41 Pulse Ox 96 02/16/24 18:41 FiO2 Intake & Output 02/16/24 02/16/24 02/17/24 06:59 18:59 06:59 Intake Total 75 Output Total 2450 400 Balance -2450 -325 Weight 98.8 kg Intake: IV 75 Output: Urine 2450 400 Other: Voiding Method Urinal - Exam PHYSICAL EXAMINATION: Patient is lying in the bed comfortably, no acute distress, awake alert and oriented.. HEENT: Normocephalic. Neck is supple. Pupils reactive. Nostrils clear. Oral cavity is moist. Neck reveals no JVD, carotid bruits, or thyromegaly. CHEST EXAMINATION: Trachea is central. Symmetrical expansion. Bibasilar diminished sounds otherwise lung gauthier clear to auscultation and percussion. CARDIAC: Normal S1, S2 with no gallops. No murmurs ABDOMEN: Soft. Bowel sounds normal. No organomegaly. No abdominal bruits. Extremities: Bilateral lower extremity 3+ edema. No clubbing or cyanosis Neurologically awake, alert, oriented x3 with well-coordinated movements. No focal deficits noted Skin: No rash or skin lesions. Psychiatric: Coperative. Nonsuicidal Musculoskeletal: No joint swelling or deformity. Normal range of motion. - Labs CBC & Chem 7: 02/15/24 03:54 02/16/24 04:49 Labs: Abnormal Lab Results - Last 24 Hours (Table) 02/16/24 Range/Units 04:49 BUN/Creatinine Ratio 21.83 H (12.00-20.00) Ratio Glucose 117 H (70-110) mg/dL Assessment and Plan Assessment: Acute CHF with reduced ejection fraction at 20 to 25%.. Cardiomyopathy nonischemic Uncontrolled hypertension Noncompliant with medications Daily alcohol use Prior history of smoking DVT prophylaxis with heparin subcu Plan: Patient will be continued on telemonitoring. Started on IV Lasix 20 mg every 8 hourly and continue to monitor renal function. Added Coreg and lisinopril for better blood sugar control. 2D echocardiogram showed reduced ejection fraction. Cardiology is on board. Status post cardiac catheterization showed mild CAD.. Continue to monitor blood pressure and titrate medications as needed. Follow-up closely. Started on thiamine and multivitamins. Alcohol abstinence has been counseled. Discussed with the patient. Time with Patient: Greater than 30
[2024-02-17] MEDS ORDERED: HEPARIN SODIUM,PORCINE (1 ML) 2,500 UNIT in SODIUM CHLORIDE 0.9% 250 ML IRRIGATION PRN (07:00)
[2024-02-17] MEDS ORDERED: HEPARIN SODIUM,PORCINE 10,000 UNIT in SODIUM CHLORIDE 0.9% 1,000 ML IRRIGATION PRN (07:00)
[2024-02-17 08:36] VITALS: RESP 16
[2024-02-17 10:55] LABS: Basophils # (A) 0.06 X 10*3/uL (0.00-0.10); Basophils % (A) 0.6 %; Eosinophils % (A) 2.9 %; HCT 47.3 % (39.6-50.0); HGB 15.1 g/dL (13.0-17.0); Lymphocytes # (A) 3.17 X 10*3/uL (0.90-5.00); Lymphocytes % (A) 30.9 %; MCH 29.3 pg (27.0-32.0); MCHC 31.9 g/dL (32.0-37.0); MCV 91.7 FL (80.0-97.0); Mean Platelet Volume 11.1 FL (9.5-12.2); Monocytes # (A) 1.12 X 10*3/uL (0.20-1.00); Monocytes % (A) 10.9 %; NRBC Per 100 WBC 0 X 10*3/uL (0.00-0.01); Neutrophils # (A) 5.58 X 10*3/uL (1.80-7.70); Neutrophils % (A) 54.4 %; Platelet Count 348 X 10*3/uL (140-440); RBC 5.16 X 10*6/uL (4.40-5.60); RDW 13.9 % (11.5-14.5); WBC 10.26 X 10*3/uL (4.50-10.00)
[2024-02-17 11:06] LABS: BUN/Creat Ratio 24.33 Ratio (12.00-20.00); Blood Urea Nitrogen 29.2 mg/dL (9.0-27.0); Calcium 9.7 mg/dL (8.7-10.3); Carbon Dioxide 28.7 mmol/L (21.6-31.8); Chloride 101 mmol/L (96-109); Glucose 109 mg/dL (70-110); Potassium 4.6 mmol/L (3.5-5.5); Sodium 139 mmol/L (135-145)
--- NOTE | 2024-02-17 13:29 | P.PN ---
Subjective HISTORY OF PRESENTING ILLNESS This is a pleasant 53-year-old with past medical history significant for hypertension, medical noncompliance, previous tobacco as well as alcohol use who presents with significant LE edema and shortness of breath. He does not see a ornament stitcher. He previously had been on a number of high blood pressure medications and was seen at [facility] clinic however does not follow and has not been taking his medications. He does not check his blood pressure home. He states he has noticed increase in lower extremity edema and some shortness breath and therefore came to the hospital. He denies any actual chest pain or p ressure. EKG shows mild sinus tachycardia with nonspecific T-wave inversions. Does not smoke, previously drank however does not drink and does have family history of father and mother having heart disease as well as aortic aneurysm. BNP noted to be elevated, chest x-ray consistent with heart failure. Blood pressures about in the 160s and 170s over 110s. 02/14 Patient is seen and examined. Patient has been maintained on Coreg 6.25 mg twice daily, lisinopril 10 mg daily. Blood pressure is 140/92, heart rate 92, pulse ox 94% on room air. WBC 9.5, hemoglobin 14.3. Electrolytes and renal fu nction are normal with a creatinine of 1.3. Triglycerides 93, cholesterol 135, LDL 83. Echocardiogram reveals EF of 20 to 25%, moderately increased left ventricular wall thickness, moderately dilated left atrium. Moderate MR, mild to moderate TR. No pericardial effusion. Patient has been maintained on IV Lasix 20 mg every 8 hours. He has a negative fluid balance and weight loss of almost 4 kg. Discussed results of the echocardiogram with the patient and the need to move forward with cardiac catheterization which he is in agreement to do. Will plan to make patient n.p.o. tonight for possible heart catheterization tomorrow. 02/15 Patient's blood pressure 145/107, heart rate 100, pulse ox 95% on room air. He is maintained on IV Lasix 40 mg every 8 hours. Patient is agreeable to move forward with left heart catheterization today with Dr. Santos. 02/16 patient seen and examined. Patient states he is feeling fairly good today. He denies any chest pain or pressure. He underwent heart catheterization which showed no significant obstructive disease. Denies any pain in his right radial site. Aldactone and Farxiga were started yesterday. PHYSICAL EXAMINATION Vital signs reviewed. CONSTITUTIONAL: No apparent distress. HEENT: Head is normocephalic. Pupils are equal, round. Sclerae anicteric. Mucous membranes of the mouth are moist. No JVD. No carotid bruit. CHEST EXAMINATION: Lungs are clear to auscultation. No chest wall tenderness is noted on palpation or with deep breathing. HEART EXAMINATION: Regular rate and rhythm. S1, S2 heard. No murmurs, gallops or rub. ABDOMEN: Soft, nontender. Positive bowel sounds. EXTREMITIES: 2+ peripheral pulses, 2+ lower extremity edema and no calf tenderness. NEUROLOGIC EXAMINATION: Patient is awake, alert and oriented x3. ASSESSMENT Acute on chronic systolic heart failure Hypertension noncompliant with medications Medical noncompliance Cardiomyopathy, undetermined type possibly alcohol induced versus ischemic Previous tobacco abuse Previous alcohol use Family history of CAD Family history of aneurysm PLAN patient appears euvolemic. Heart catheterization does not show any significant CAD. Continue with heart failure regimen and use Lasix as needed. Stable for discharge home from a cardiology standpoint. Objective - Vital Signs Vital signs: Vital Signs Temp 97.9 F 02/17/24 07:00 Pulse 95 02/17/24 07:00 Resp 16 02/17/24 07:00 BP 138/95 02/17/24 07:00 Pulse Ox 98 02/17/24 07:55 FiO2 Intake & Output 02/16/24 02/17/24 02/17/24 18:59 06:59 18:59 Intake Total 75 1316 Output Total 400 Balance -325 1316 Weight 98.5 kg Intake: IV 75 Oral 1316 Output: Urine 400 Other: Voiding Method Urinal # Voids 1 - Labs CBC & Chem 7: 02/17/24 06:21 02/17/24 06:21 Labs: Abnormal Lab Results - Last 24 Hours (Table) 02/17/24 02/17/24 Range/Units 06:21 06:21 WBC 10.26 H (4.50-10.00) X 10*3/uL MCHC 31.9 L (32.0-37.0) g/dL Monocytes # 1.12 H (0.20-1.00) X 10*3/uL BUN 29.2 H (9.0-27.0) mg/dL BUN/Creatinine Ratio 24.33 H (12.00-20.00) Ratio
--- NOTE | 2024-02-17 13:44 | CDI ---
Documentation Clarification Form Date: 02/17/2024 01:15:19 PM From: Janine Howe RN, CCDS Phone: [phone] Admit Date: 02/13/2024 12:39:00 PM Patient Name: Gerardo Sepulveda Visit Number: [id number] Discharge Date: ATTENTION: The Clinical Documentation Specialists (CDI) and [facility] Coding Staff appreciate your assistance in clarifying documentation. Please respond to the clarification below the line at the bottom and electronically sign. The CDI & [facility] Coding staff will review the response and follow-up if needed. Please note: Queries are made part of the Legal Health Record. If you have any questions, please contact the author of this message via ITS. Dr. Lencho Diane Your patient has uncontrolled hypertension documented in the H/P and ongoing progress notes. Based on this information and the findings below, is there an additional diagnosis that is clinically appropriate for this patient? Patient history/risk factors: Hypertension Clinical Indicators: 53-year-old with past medical history significant for hypertension, medical noncompliance who presents with significant LE edema and shortness of breath. He does not check his blood pressure home. VS 151/109 107 16, 166/127, 156/114 107 18, 156/114 108 24 Treatment: Residential Life Director/Telemetry Hydralazine Hcl 10 MG IVP ONCE 02/12 Coreg 6.25 MG PO BID Zestril 10 MG PO Daily Is there an additional diagnosis that is clinically appropriate for this patient? [ ] Hypertensive Urgency [ x ] Unable to determine [ ] Other, please specify (Template Last Reviewed: September 2022) MTDD
[2024-02-17 15:25] VITALS: BP 116/77; PULSE 89; TEMP 97.5
[2024-02-18] MEDS ORDERED: FUROSEMIDE 40 MG TAB PO SCH (09:00)
[2024-02-18] MEDS ORDERED: lisinopriL 20 MG TAB PO SCH (09:00)
== END 2024-02-17 17:25 | disposition home or self-care (01) | DRG 286 ==
LOC: EC 08:39 → 6NMEDSUR 12:38 → OBSVTOIN 12:39 → 6NMEDSUR 17:03
PROVIDERS: ADMIT Internal Medicine; ATTEND Internal Medicine
PROC: B2111ZZ Fluoroscopy of Multiple Coronary Arteries using Low Osmolar Contrast (ICD-10-PCS; principal; 2024-02-16 09:47)
PROC: 4A023N7 Measurement of Cardiac Sampling and Pressure, Left Heart, Percutaneous Approach (ICD-10-PCS; principal; 2024-02-16 09:47)
DX: I11.0 Hypertensive heart disease with heart failure (principal); I50.43 Acute on chronic combined systolic (congestive) and diastolic (congestive) heart failure; I42.8 Other cardiomyopathies; I25.10 Atherosclerotic heart disease of native coronary artery without angina pectoris; I08.1 Rheumatic disorders of both mitral and tricuspid valves; Z79.899 Other long term (current) drug therapy; Z82.49 Family history of ischemic heart disease and other diseases of the circulatory system; Z87.891 Personal history of nicotine dependence; Z91.148 Patient's other noncompliance with medication regimen for other reason; Z91.199 Patient's noncompliance with other medical treatment and regimen due to unspecified reason
CPT/HCPCS: 36415; 71046; 80048; 80053; 80061; 80320; 83605; 83735; 83880; 84484; 85025; 85610; 85730; 93005; 93306; 93458; 94760; 96372; 96374; 96375; 96376; 99285

== ENCOUNTER → 2024-11-17 | Outpatient (CLI) | payer OTHER ==
[2024-11-17 15:23] LABS: BUN/Creat Ratio 16.58 Ratio (12.00-20.00); Blood Urea Nitrogen 19.9 mg/dL (9.0-27.0); Calcium 9.7 mg/dL (8.7-10.3); Carbon Dioxide 25.3 mmol/L (21.6-31.8); Chloride 102 mmol/L (96-109); Glucose 99 mg/dL (70-110); Potassium 5.4 mmol/L (3.5-5.5); Sodium 138 mmol/L (135-145)
== END | disposition home or self-care (01) ==
LOC: LABWHC1 09:29
PROVIDERS: ATTEND Nurse Practitioner Acute Care
DX: I50.22 Chronic systolic (congestive) heart failure (principal); R60.0 Localized edema
CPT/HCPCS: 36415; 80048